=== PATIENT | male | born 1980 | race Caucasian/White ===

== ENCOUNTER 2019-05-26 04:26 | Inpatient (IN) | payer OTHER ==
[~2019-05-26] VITALS: Ht 160 cm; Wt 72.7 kg
[2019-05-26] MEDS ORDERED: HALOPERIDOL 5 MG INJ ONE (04:41)
[2019-05-26] MEDS ORDERED: DIPHENHYDRAMINE 50 MG INJ ONE (04:41)
[2019-05-26] MEDS ORDERED: LORAZEPAM 2 MG INJ ONE (04:41)
[2019-05-26] MEDS ORDERED: SODIUM CHLORIDE 0.9% 1L BAG IV* STA (04:54)
[2019-05-26] MEDS ORDERED: HALOPERIDOL 5 MG INJ IM ONE (05:00)
[2019-05-26] MEDS ORDERED: DIPHENHYDRAMINE 50 MG INJ IM ONE (05:00)
[2019-05-26] MEDS ORDERED: LORAZEPAM 2 MG INJ IM ONE (05:00)
[2019-05-26] MEDS ORDERED: CEFEPIME 2GM/50 ML (PMX) 50 ML IVPB STA (05:21)
[2019-05-26] MEDS ORDERED: VANCOMYCIN 1 GM (PMX) 250 ML IVPB ONE (05:30)
--- NOTE | 2019-05-26 06:18 | ERD ---
ER Documentation Chief Complaint Chief Complaint ALOC STARTING @245 HPI This is a 38-year-old male with a past medical history of hypertension that presents to the emergency department with changes in his mental status that occurred roughly 3 hours prior to arrival. His states that he drinks alcohol on a regular basis. She however states that the patient does not do illicit drugs. The patients awoke at 2:45 AM as she heard the patient acting bizarre. She stated the patient was talking to himself. He was not making sense according to the . The indicates the patient has not had any recent travel. He denied any recent headaches. He has not had a productive or nonproductive cough. The believes the patient's last consumption of alcohol was 1 week ago. The was unable to calm the patient down therefore she found 911. When EMS arrived they indicated the patient was very fidgety and aggressive. The patient had also been at [facility] yesterday evening treated for abdominal pain. The patient has a ventral hernia awaiting for outpatient surgical repair. He did receive a dose of morphine and Zofran in the emergency department at [place]. His states that his abdominal pain had improved and the patient had been subsequently discharged from the emergency room. ROS All systems reviewed and are negative except as per history of present illness. Medications Home Meds Reported Medications Citalopram Hydrobromide* (Celexa*) 10 Mg Tablet, 10 MG PO BID, #30 TAB 05/26/19 Pantoprazole* (Protonix*) 40 Mg Tablet.dr, 40 MG PO DAILY, TAB 05/26/19 Allergies Allergies: Coded Allergies: No Known Allergy (Unverified , 05/26/19) PMhx/Soc Hx Cardiac Disorders: Yes (htn) Hx Miscellaneous Medical Probl: Yes (fatty liver) Hx Alcohol Use: Yes Smoking Status: Unknown if ever smoked Physical Exam Vitals Vital Signs Date Temp Pulse Resp B/P (MAP) Pulse Ox O2 O2 Flow FiO2 Time Delivery Rate 05/26/19 87 20 127/91 99 Nasal 2.0 12:45 (103) Cannula 05/26/19 87 20 128/89 100 Nasal 3.0 11:38 (102) Cannula 05/26/19 99.2 105 22 134/92 100 Nasal 3.0 07:28 (106) Cannula 05/26/19 99.5 109 23 125/85 98 06:16 (98) 05/26/19 99.8 110 21 125/89 99 06:14 (101) 05/26/19 99.7 114 23 132/85 98 06:00 (101) 05/26/19 99.8 122 25 112/87 97 05:45 (95) 05/26/19 100.8 129 23 132/76 94 05:30 (94) 05/26/19 101.1 130 27 167/234 97 05:15 (212) 05/26/19 101.3 140 24 239/225 98 05:00 (230) 05/26/19 101.1 169 23 174/129 98 04:56 (144) 05/26/19 101.1 140 20 168/100 98 04:50 (122) Physical Exam Constitutional:Well-developed. Well-nourished. HEENT:Normocephalic. Atraumatic.Pupils were equal 4 mm round reactive to light. Very dry mucous membranes.No tonsillar exudates. Neck: No nuchal rigidity. No lymphadenopathy. No posterior cervical spine tenderness or step-offs. Respiratory: Not using accessory muscles of respiration.Lungs were clear to auscultation bilaterally. No rhonchi. No rales. No wheezing. Cardiovascular: Tachycardic with regular rhythm.No murmurs. No rubs were appreciated.S1, S2 normal. Distal pulses are palpable 2+ bilaterally. GI: Abdomen was soft. Nontender. Non Distended. No pulsatile abdominal masses or bruits. No rebound. No guarding. Bowel sounds were present and normal. Muscle skeletal: Full range of motion of both the upper and lower extremities bilaterally.Normal muscle tone.No assymetrical calf tenderness or swelling. Skin: Diaphoretic. No petechia, no purpura. No lesions on the palms or the soles of the feet. No maculopapular rash. NEURO: Patient was alert, awake to person but not to place or time. Gait not observed as patient was too combative. He was not following verbal commands PSYCH: Patient was speaking nonsensical words. Patient did not follow verbal command. Patient appeared guarded and anxious and appeared paranoid. Result Diagram: 05/26/1952305/26/19523 Results 24 hrs Laboratory Tests Test 05/26/19 05:21 05/26/19 05:24 05/26/19 06:09 05/26/19 07:52 POC Venous 7.8 mmol/L Lactate White Blood Count 8.9 10^3/ul Red Blood Count 4.75 10^6/ul Hemoglobin 13.9 g/dl Hematocrit 40.8 % Mean Corpuscular 85.9 fl Volume Mean Corpuscular 29.3 pg Hemoglobin Mean Corpuscular 34.1 g/dl Hemoglobin Concen t Red Cell 12.8 % Distribution Width Platelet Count 148 10^3/UL Mean Platelet 10.2 fl Volume Immature 0.300 % Granulocytes % Neutrophils % 79.9 % Lymphocytes % 10.7 % Monocytes % 8.2 % Eosinophils % 0.2 % Basophils % 0.7 % Nucleated Red 0.0 /100WBC Blood Cells % Immature 0.030 10^3/ul Granulocytes # Neutrophils # 7.1 10^3/ul Lymphocytes # 1.0 10^3/ul Monocytes # 0.7 10^3/ul Eosinophils # 0.0 10^3/ul Basophils # 0.1 10^3/ul Nucleated Red 0.0 10^3/ul Blood Cells # Prothrombin Time 12.4 Sec Prothrombin Time 1.0 Ratio INR International 0.91 Normalized Ratio Activated 22.2 Sec Partial Thrombopl ast Time Sodium Level 139 mmol/L Potassium Level 3.2 mmol/L Chloride Level 102 mmol/L Carbon Dioxide 17 mmol/L Level Anion Gap 20 Blood Urea 14 mg/dl Nitrogen Creatinine 1.18 mg/dl Est Glomerular > 60 mL/min Filtrat Rate mL/min Glucose Level 144 mg/dl Calcium Level 8.7 mg/dl Total Bilirubin 0.5 mg/dl Direct Bilirubin 0.00 mg/dl Indirect 0.5 mg/dl Bilirubin Aspartate Amino 109 IU/L Transf (AST/SGOT) Alanine 104 IU/L Aminotransferase (ALT/SGPT) Alkaline 133 IU/L Phosphatase Troponin I 0.028 ng/ml Total Protein 7.6 g/dl Albumin 4.2 g/dl Globulin 3.40 g/dl Albumin/Globulin 1.23 Ratio Salicylates Level < 1.0 mg/dl Acetaminophen < 10.0 ug/ml Level Ethyl Alcohol < 10.0 mg/dl Level Urine Color YELLOW Urine Clarity CLEAR Urine pH 6.0 Urine Specific 1.014 Mun[place] Urine Ketones 1+ mg/dL Urine Nitrite NEGATIVE mg/dL Urine Bilirubin NEGATIVE mg/dL Urine NEGATIVE mg/dL Urobilinogen Urine Leukocyte NEGATIVE Eliot/ul Esterase Urine Microscopic 0 /HPF RBC Urine Microscopic 1 /HPF WBC Urine Hemoglobin 1+ mg/dL Urine Glucose NEGATIVE mg/dL Urine Total 1+ mg/dl Protein Urine Opiates POSITIVE Screen Urine NEGATIVE Barbiturates Urine NEGATIVE Amphetamines Screen Urine NEGATIVE Benzodiazepines Screen Urine Cocaine NEGATIVE Screen Urine NEGATIVE Cannabinoids Lactic Acid Level 0.9 mmol/L Test 05/26/19 08:10 05/26/19 10:24 CSF Tubes Submitted CSF Volume ml CSF Appearance CSF Color CSF WBC /cmm CSF RBC /uL CSF Cell Count Tube # CSF Mononuclear % Cells % (Auto) CSF Polynuclear % WBCs (%) CSF Comment CSF Glucose 98 mg/dl CSF Total Protein mg/dl Lactic Acid Level 0.8 mmol/L Current Medications Medications Dose Sig/Anne Start Time Status Last (Trade) Ordered Route PRN Stop Time Admin Dose Reason Admin Haloperidol 5 mg ONCE ONCE 05/26/19 DC 05/26/19 (Haldol) IM 05:00 04:50 05/26/19 05:01 Lorazepam 2 mg ONCE ONCE 05/26/19 DC 05/26/19 (Ativan) IM 05:00 04:50 05/26/19 05:01 50 mg ONCE ONCE 05/26/19 DC 05/26/19 Diphenhydrami IM 05:00 04:50 ne HCl 05/26/19 05:01 (Benadryl) 50 mg STK-MED 05/26/19 DC Diphenhydrami ONCE .ROUTE 04:41 ne HCl 05/26/19 04:42 (Benadryl) Haloperidol 5 mg STK-MED 05/26/19 DC (Haldol) ONCE .ROUTE 04:41 05/26/19 04:42 Lorazepam 2 mg STK-MED 05/26/19 DC (Ativan) ONCE .ROUTE 04:41 05/26/19 04:42 Sodium 2,180 ml BOLUS OVER 2 05/26/19 DC 05/26/19 Chloride HOURS STAT 04:54 05:40 (NS) IV* 05/26/19 04:55 Cefepime HCl 50 ml @ ONCE STAT 05/26/19 DC 05/26/19 100 mls/hr IVPB 05:21 05:42 05/26/19 05:50 Vancomycin 250 ml @ ONCE ONCE 05/26/19 DC 05/26/19 HCl 125 mls/hr IVPB 05:30 06:13 05/26/19 07:29 Ketamine 22 mg ONCE ONCE 05/26/19 DC 05/26/19 HCl IV 06:30 07:57 (Ketalar) 05/26/19 06:31 10 mg ONCE ONCE 05/26/19 DC 05/26/19 Dexamethasone IV 06:30 06:39 (Decadron) 05/26/19 06:31 Sodium 1,000 ml @ Q1H STAT 05/26/19 DC 05/26/19 Chloride 1,000 mls/hr IV 08:14 08:25 05/26/19 08:53 Acyclovir 100 ml @ ONCE STAT 05/26/19 Cancel 500 mg/ 100 mls/hr IVPB 08:14 Dextrose 05/26/19 09:13 Lorazepam 2 mg ONCE STAT 05/26/19 DC 05/26/19 (Ativan) IV 09:24 11:20 05/26/19 09:25 Haloperidol 5 mg ONCE STAT 05/26/19 DC 05/26/19 (Haldol) IM 09:24 11:20 05/26/19 09:25 50 mg ONCE ONCE 05/26/19 DC 05/26/19 Diphenhydrami IV 09:30 11:20 ne HCl 05/26/19 09:31 (Benadryl) Ketamine 25 mg ONCE ONCE 05/26/19 DC HCl IV 12:30 (Ketalar) 05/26/19 12:31 Propofol 100 mg ONCE STAT 05/26/19 DC (Diprivan) IV 12:41 05/26/19 12:42 1,000 ml @ Q2H ONCE 05/26/19 Multivitamins 500 mls/hr IV 14:00 10 05/26/19 15:59 ml/Thiamine HCl 100 mg/Folic Acid 1 mg/Magnesium Sulfate 2 gm/ Sodium Chloride Procedures/MDM The patient presented to the emergency department with an acute and persistent change in their mental status. The differential diagnosis is diverse however reversible causes such as hypoglycemia, opiate overdose, thiamine deficiency were immediately considered. The patient was placed on a manager solution, continuous pulse oximetry and IV access was established. The patients airway was secure however hypoxic events such as anemia, shock, or severe pulmonary disease were all considered as etiologies in this patients presentation. Circulation assessed with good cap refill and did not require fluids or pressure support. Finger stick for rapid glucose determined to be normal. The patient had a urine drug screen that was negative for amphetamines or stimulants. This was positive for opiates but the patient had received a dose of intravenous morphine yesterday at [place] emergency room. Therefore I felt the patient required further evaluation into his altered mental status a lumbar puncture will be obtained to rule out for meningitis 12 Lead EKG tracing ordered and reviewed by myself showed: Sinus tachycardia 138 bpm and no arrhythmia. CO interval normal. QRS duration normal. No ST segment elevation No ST segment depression. No changes consistent with acute ischemia. Patient's infectious symptoms have not stabilized and the patient is at risk of rapid decompensation. The patient will be admitted for careful hydration, ant ibiotic therapy, and infectious source control. Severe Sepsis Assessment: Infectious Source: Unknown End organ damage indicated by: Lactate > 2.0 mmol/L Severe Sepsis Managment: Blood Cultures X 2 before broad spectrum antibiotics initiated within 3 hours of recognition. 30 ml/kg NS bolus Completed Initial Lactate: 7.0 Repeat Lactate pending Septic Shock Assessment (1 hour post 30 ml/kg fluid bolus): Hypotension (SBP < 90 or 40 mmHg drop, MAP < 65): No Lactic acid > 4.0 Yes Please note that I did not feel that the patient's lactic acid was elevated at 7.8. If this was a POC lactate. The patient had been very agitated and was difficult to obtain blood work when he initially arrived. The serum lactate taken from the initial blood draw was 0.9. Repeat lactic acid was 0.8. However the patient did receive a 30 cc/kg bolus of normal saline also was started on broad-spectrum antibiotics for suspected meningitis. He received 10 mg of Decadron intravenously and afterwards was given 1 g of vancomycin and 2 g of cefepime. Blood cultures and urine cultures have been obtained prior to antibiotics being given. CT scan of the patient's head showed no intracerebral hemorrhage mass-effect or midline shift. Chest radiograph showed no infiltrates or pneumothorax. Lumbar Puncture by me: Patient consented, time out performed, sterilely prepped/draped, anesthetized locally. Anesthesia: 1% lidocaine locally Location: One interspace below the iliac crest Technique: 22 gauge needle with stylet for entry and removal of needle Results: Bloody CSF fluid was obtained. The patient was very agitated. He required chemical sedation and restraints as he was attempting to remove life-s aving devices. This made the lumbar puncture very difficult to perform and this appeared to be a traumatic tap however acyclovir was also added to the patient's medications. A culture was sent but the blood clotted. Therefore a repeat lumbar puncture was performed by myself under conscious sedation. There was no hypoxic or apneic events. The patient was placed lying supine in the lateral decubitus position. Transparent clear fluid was obtained. CSF was sent for analyzation. Procedural Sedation: Pre-assessment performed. See preceding complete history and physical for details. Time out performed. See sedation documentation for details. Medication(s): 150 mg of propofol Complications: No hypoxic or apneic events Recovered without incident. Greater than 15 minutes of face to face time included in sedation and recovery. No post procedure complications, bleeding, numbness or weakness. I spoke with the [facility] physician and the patient was not stable for transfer. They gave authorization to admit to her panel physician the patient will go to the intensive care unit in serious condition. Case number was [id number]. The patient remained in restraints given that he continued to remove all his IVs which were replaced by nursing staff. He required further chemical sedation. Could also not rule out alcohol withdrawal delirium in this patient. He was given a banana bag Ativan. Ammonia level will be obtained to rule out for hepatic encephalopathy. Patient has mild transaminitis secondary to alcohol use. Critical Care: Time: 100 minutes Treatments/Evaluations: Close monitoring and treatment of unstable vital signs, cardiorespiratory, and neurologic status, while maintaining tight balance of fluid, respiratory, and cardiac interventions. Time does not include performing any of the above billable procedures. Departure Diagnosis: Primary Impression: Altered level of consciousness Additional Impressions: Meningitis Alcohol withdrawal delirium Condition: Serious STACI GERARD MD May 26, 2019 06:18
[2019-05-26] MEDS ORDERED: DEXAMETHASONE 10 MG/ML 1 ML INJ IV ONE (06:30)
[2019-05-26] MEDS ORDERED: KETAMINE (50 MG/ML) 10 ML VIAL IV ONE ×2 (06:30→12:30)
[2019-05-26] MEDS ORDERED: PANT40TA3 PO (06:53)
[2019-05-26] MEDS ORDERED: CITA10TA10 PO (06:54)
[2019-05-26] MEDS ORDERED: ACYCLOVIR 500 MG in DEXTROSE 5% 100 ML IVPB STA (08:14)
[2019-05-26] MEDS ORDERED: SOD CHLORIDE 0.9% 1,000 ML IV STA (08:14)
[2019-05-26] MEDS ORDERED: HALOPERIDOL 5 MG INJ IM STA (09:24)
[2019-05-26] MEDS ORDERED: LORAZEPAM 2 MG INJ IV STA (09:24)
[2019-05-26] MEDS ORDERED: DIPHENHYDRAMINE 50 MG INJ IV ONE (09:30)
[2019-05-26] MEDS ORDERED: PROPOFOL 200 MG INJ IV STA (12:41)
[2019-05-26] MEDS ORDERED: MULTIVITAMINS 10 ML, THIAMINE 100 MG, FOLIC ACID 1 MG, MAGNESIUM SULFATE 2 GM in SOD CH... IV ONE (14:00)
[2019-05-26] MEDS ORDERED: morphine 2 MG INJ IV PRN (17:00)
[2019-05-26] MEDS ORDERED: CEFTRIAXONE 2 GM/50 ML (PMX) 50 ML IVPB SCH (17:00)
[2019-05-26] MEDS ORDERED: NACL 0.9% 3 ML SYG IV SCH (17:00)
[2019-05-26] MEDS ORDERED: ONDANSETRON 4 MG INJ IV PRN (17:00)
[2019-05-26] MEDS ORDERED: VANCOMYCIN IV PER PHARMACY XX SCH (17:00)
--- NOTE | 2019-05-26 17:10 | HP ---
Date/Time of Note Date/Time of Note DATE: 05/26/19 TIME: 17:03 Assessment/Plan VTE Prophylaxis SCD applied (from Nsg): Yes Pharmacological prophylaxis: NA/contraindicated Pharm contraindication: other Lines/Catheters IV Catheter Type (from Nrsg): Saline Lock Assessment/Plan Hospital Course 1. Acute metabolic/toxic encephalopathy secondary to infectious process and/or alcohol withdrawal Patient's last drink was 4 days ago Patient with tachycardia and fever on arrival, LP done in the ED, follow-up on culture Treat for bacterial meningitis with Rocephin, vancomycin and Decadron as well as ampicillin due to alcohol abuse Check ammonia level Follow-up on cultures 2. Sepsis with fevers and tachycardia possibly secondary to bacterial meningitis Treatment as above IV fluids 3. History of alcohol abuse with fatty liver Patient's last drink was 4 days ago Banana bag Ativan as needed 4. Transaminitis likely secondary to fatty liver Follow-up on ultrasound of the liver and hepatitis panel 5. Hypokalemia Replete 6. History of hypertension Monitor 7. History of ventral hernia Plan for outpatient surgery Prophylaxis: SCDs Result Diagram: 05/26/1924 05/26/1924 Results 24hrs Laboratory Tests Test 05/26/19 05:21 05/26/19 05:24 05/26/19 06:09 05/26/19 07:52 POC Venous Lactate 7.8 *H White Blood Count 8.9 Red Blood Count 4.75 Hemoglobin 13.9 L Hematocrit 40.8 L Mean Corpuscular 85.9 Volume Mean Corpuscular 29.3 Hemoglobin Mean Corpuscular 34.1 Hemoglobin Concent Red Cell 12.8 Distribution Width Platelet Count 148 Mean Platelet Volume 10.2 Immature 0.300 Granulocytes % Neutrophils % 79.9 H Lymphocytes % 10.7 L Monocytes % 8.2 Eosinophils % 0.2 Basophils % 0.7 Nucleated Red Blood 0.0 Cells % Immature 0.030 Granulocytes # Neutrophils # 7.1 Lymphocytes # 1.0 Monocytes # 0.7 Eosinophils # 0.0 Basophils # 0.1 Nucleated Red Blood 0.0 Cells # Prothrombin Time 12.4 Prothrombin Time 1.0 Ratio INR International 0.91 Normalized Ratio Activated 22.2 L Partial Thromboplast Time Sodium Level 139 Potassium Level 3.2 L Chloride Level 102 Carbon Dioxide Level 17 L Anion Gap 20 H Blood Urea Nitrogen 14 Creatinine 1.18 Est Glomerular > 60 Filtrat Rate mL/min Glucose Level 144 Calcium Level 8.7 Total Bilirubin 0.5 Direct Bilirubin 0.00 Indirect Bilirubin 0.5 Aspartate Amino 109 H Transf (AST/SGOT) Alanine 104 H Aminotransferase (AL T/SGPT) Alkaline Phosphatase 133 H Troponin I 0.028 Total Protein 7.6 Albumin 4.2 Globulin 3.40 H Albumin/Globulin 1.23 Ratio Salicylates Level < 1.0 L Acetaminophen Level < 10.0 L Ethyl Alcohol Level < 10.0 H Urine Color YELLOW Urine Clarity CLEAR Urine pH 6.0 Urine Specific 1.014 [place] Urine Ketones 1+ H Urine Nitrite NEGATIVE Urine Bilirubin NEGATIVE Urine Urobilinogen NEGATIVE Urine Leukocyte NEGATIVE Esterase Urine Microscopic 0 RBC Urine Microscopic 1 WBC Urine Hemoglobin 1+ H Urine Glucose NEGATIVE Urine Total Protein 1+ H Urine Opiates Screen POSITIVE Urine Barbiturates NEGATIVE Urine Amphetamines NEGATIVE Screen Urine NEGATIVE Benzodiazepines Screen Urine Cocaine Screen NEGATIVE Urine Cannabinoids NEGATIVE Lactic Acid Level 0.9 Test 05/26/19 08:10 05/26/19 10:24 05/26/19 13:50 05/26/19 14:20 CSF Tubes Submitted 4 CSF Volume 5.0 CSF Appearance CLEAR CSF Color COLORLESS CSF WBC 1 CSF RBC 0 CSF Cell Count Tube TUBE#1 # CSF Mononuclear 100.0 Cells % (Auto) CSF Polynuclear WBCs 0.0 (%) CSF Comment CSF Glucose 98 H 63 CSF Total Protein 40 Lactic Acid Level 0.8 Ammonia 12 HPI/ROS Admit Date/Time Admit Date/Time May 26, 2019 Hx of Present Illness Patient is a 38-year-old male with history of hypertension, alcohol abuse, reported fatty liver who presents with acute confusion that started 3 hours prior to arrival. Per the patient's patient does drink alcohol on a regular basis but last drink was 4 days ago. Patient does not report the use illicit drugs. Patient's woke up at 3 AM and noticed that the patient was acting different than his baseline, patient was making sense and talking to himself. Patient has no sick contacts, headaches or recent travel history. Patient became agitated and called 911, paramedics reported that the patient was agitated and aggressive. Patient was recently at [facility] and treated for abdominal pain. Patient does have a ventral hernia and is waiting for outpatient surgical repair. In the ER patient's temperature was elevated and LP was done due to concern for meningitis. Patient's mentation is currently improved but is still confused and not back to baseline according to . Toxicology in the ER was positive only for opiates. ROS Confused PMH/Family/Social Past Medical History As per HPI Medications Current Medications IV Flush (NS 3 ml) 3 ml PER PROTOCOL IV ; Start 05/26/19 at 17:00 Ondansetron HCl (Zofran Inj) 4 mg Q6H PRN IV NAUSEA/VOMITING; Start 05/26/19 at 17:00 Morphine Sulfate (morphine) 2 mg Q4H PRN IV .SEVERE PAIN 7-10; Start 05/26/19 at 17:00 Ceftriaxone Sodium 50 ml @ 100 mls/hr Q24H IVPB ; Start 05/26/19 at 17:00; Status UNV Vancomycin HCl (Vanco Iv Per Pharmacy) 1 ea PER PROTOCOL XX ; Start 05/26/19 at 17:00; Status UNV Dexamethasone (Decadron) 11 mg Q6 IV ; Start 05/26/19 at 18:00 Ampicillin 100 ml @ 100 mls/hr Q4 IVPB ; Start 05/26/19 at 17:00 Potassium Chloride 30 meq/ Sodium Chloride 1,015 ml @ 100 mls/hr Q10H9M IV ; Start 05/26/19 at 17:00 Coded Allergies: No Known Allergy (Unverified , 05/26/19) Past Surgical History Past Surgical Hx: no surgical history Family History Significant Family History: no pertinent family hx Social History Alcohol Use: heavy Smoking Status: Unknown if ever smoked Drug Use: none Exam/Review of Systems Vital Signs Vitals Vital Signs Date Temp Pulse Resp B/P (MAP) Pulse Ox O2 O2 Flow FiO2 Time Delivery Rate 05/26/19 87 18 128/100 99 Nasal 2.0 15:45 (109) Cannula 05/26/19 99.2 07:28 Intake and Output 05/25/19 05/25/19 05/26/19 1515:00 23:00 07:00 IntakeIntake Total 50 ml BalanceBalance 50 ml Exam Constitutional: alert Psych: confusion Respiratory: clear to auscultation Cardiovascular: regular rate and rhythm Gastrointestinal: soft; No distended Musculoskeletal: nl extremities to inspection ALEX RUTH May 26, 2019 17:10
[2019-05-26] MEDS ORDERED: LORAZEPAM 2 MG INJ IV PRN (17:30)
[2019-05-26] MEDS: AMPICILLIN 2 GM/NS (PMX) 100 ML IVPB SCH ×2 (17:50→21:06)
[2019-05-26] MEDS: POTASSIUM CHLORIDE 30 MEQ in SOD CHLORIDE 0.9% 1,000 ML IV SCH (17:51)
[2019-05-26] MEDS ORDERED: VANCOMYCIN 500 MG (PMX) 100 ML IVPB ONE (18:00)
[2019-05-26] MEDS ORDERED: VANCOMYCIN 1.5 GM/NS 250 ML 250 ML IVPB ONE (18:00)
[2019-05-26] MEDS: DEXAMETHASONE 4 MG/ML 5 ML INJ IV SCH (18:50)
[2019-05-26 19:30] VITALS: Ht 160 cm; Wt 72.7 kg
[2019-05-26 20:00] VITALS: BP 131/90; PULSE 78; PULSE 80; RESP 17
[2019-05-26 21:00] VITALS: BP 137/93; PULSE 85; RESP 18
[2019-05-26 22:00] VITALS: BP 127/93; PULSE 82; RESP 18
[2019-05-26 23:00] VITALS: BP 127/88; PULSE 87; RESP 22
[2019-05-27] VITALS (23 sets, daily range): BP systolic 109–169; BP diastolic 88–114; PULSE 70–109; RESP 11–26
[2019-05-27] MEDS: DEXAMETHASONE 4 MG/ML 5 ML INJ IV SCH ×3 (01:35→12:00)
[2019-05-27] MEDS: AMPICILLIN 2 GM/NS (PMX) 100 ML IVPB SCH ×4 (01:41→13:00)
[2019-05-27] MEDS: POTASSIUM CHLORIDE 30 MEQ in SOD CHLORIDE 0.9% 1,000 ML IV SCH ×2 (03:09→13:17)
[2019-05-27] MEDS: MULTIVITAMINS 10 ML, THIAMINE 100 MG, FOLIC ACID 1 MG in SOD CHLORIDE 0.9% 1,000 ML IVPB SCH ×2 (04:55→04:57)
[2019-05-27] MEDS ORDERED: VANCOMYCIN 1 GM 250 ML IVPB SCH (06:00)
[2019-05-27] MEDS ORDERED: CEFTRIAXONE 2 GM/50 ML (PMX) 50 ML IVPB SCH (07:00)
--- NOTE | 2019-05-27 10:25 | PDOCDIS ---
Discharge Instructions CONDITION [id number] Patient Condition: [id number] Good HOME CARE INSTRUCTIONS: [id number] Diet Instructions: [id number] Regular ACTIVITY: [id number] Activity Restrictions: [id number] No Restrictions FOLLOW UP/APPOINTMENTS Follow-up Plan FOLLOW UP WITH YOUR PCP IN 1-2 WEEKS ALEX RUTH May 27, 2019 10:25
--- NOTE | 2019-05-27 12:06 | CONSI ---
Assessment/Plan Assessment/Plan Assessment/Plan (Recall) 38 M who presents for evaluation of confusion and agitation in the context of fevers. The clinical picture was initially thought concerning for encephalitis; CSF evaluation is reassuringly negative. An acute toxic-metabolic encephalopathy is possible.. ETOH withdrawal is considered less likely.. Head CT is unrevealing. P: OK to defer further neurologic investigation for now Continued medical management and supportive care per primary Neurologically cleared for transfer Consultation Date/Type/Reason Admit Date/Time May 26, 2019 Type of Consult Neurology Reason for Consultation ams, fevers Requesting Provider: ALEX RUTH Date/Time of Note DATE: 05/27/19 TIME: 11:58 Hx of Present Illness 38 M who presents for evaluation of confusion. He states that he developed a GI illness, which led him to [facility] twice in the past week. He notes that he was eventually prescribed morphine, which made him confused and psychotic.. He denies headache, weakness, numbness, or other neurologic Sx.. It is elsewhere noted: Patient is a 38-year-old male with history of hypertension, alcohol abuse, reported fatty liver who presents with acute confusion that started 3 hours prior to arrival. Per the patient's patient does drink alcohol on a regular basis but last drink was 4 days ago. Patient does not report the use illicit drugs. Patient's woke up at 3 AM and noticed that the patient was acting different than his baseline, patient was making sense and talking to himself. Patient has no sick contacts, headaches or recent travel history. Patient became agitated and called 911, paramedics reported that the patient was agitated and aggressive. Patient was recently at [facility] and treated for abdominal pain. Patient does have a ventral hernia and is waiting for outpatient surgical repair. In the ER patient's temperature was elevated and LP was done due to concern for meningitis. Patient's mentation is currently improved but is still confused and not back to baseline according to . Toxicology in the ER was positive only for opiates. per HPI Objective Exam Vitals Vital Signs Date Temp Pulse Resp B/P (MAP) Pulse Ox O2 O2 Flow FiO2 Time Delivery Rate 05/27/19 97 26 138/98 94 11:15 (111) 05/27/19 Room Air 11:00 05/27/19 96.1 08:00 7/16/19 2.0 18:28 Intake and Output 05/26/19 05/26/19 05/27/19 1515:00 23:00 07:00 IntakeIntake Total 400 ml 1075 ml BalanceBalance 400 ml 1075 ml Exam PE: Gen Appearance: No Apparent Distress HEENT: Normocephalic Cardiovascular: Regular rate Lungs: Clear bilaterally Abdomen: Soft Extremities: Dry NE: The patient was alert and oriented. Language was normal. Fund of knowledge was normal. Pupils were equal and reactive to light. There was no afferent pupillary defect. Visual smyth were normal. Funduscopic examination was limited. Extra-ocular movements were full. Ptosis was absent. There was no nystagmus. Facial sensation was normal. Face was symmetric with normal strength. Hearing was intact. Palate movements were normal. Neck strength was normal. There was normal tongue bulk and speed of movement. Tone was normal. Muscle bulk was normal. I did not see fasciculations. Arms and legs were strong. Vibration sensation was normal. Temperature and pinprick sensation was normal. Rapid alternating movements were normal. There was no dysmetria. There was no intention tremor. Gait was deferred due to bedrest. Arm and leg reflexes were 2+ and symmetric. Moore's sign was absent. Plantar responses were flexor. Results Result Diagram: 05/27/19 0439 05/27/19 0440 Results 24hrs Laboratory Tests Test 05/26/19 13:50 05/26/19 14:20 05/26/19 19:22 05/27/19 04:39 CSF Tubes Submitted 4 CSF Volume 5.0 CSF Appearance CLEAR CSF Color COLORLESS CSF WBC 1 CSF RBC 0 CSF Cell Count Tube TUBE#1 # CSF Mononuclear 100.0 Cells % (Auto) CSF Polynuclear WBCs 0.0 (%) CSF Glucose 63 CSF Total Protein 40 Ammonia 12 17 White Blood Count 10.6 Red Blood Count 4.62 L Hemoglobin 13.6 L Hematocrit 40.1 L Mean Corpuscular 86.8 Volume Mean Corpuscular 29.4 Hemoglobin Mean Corpuscular 33.9 Hemoglobin Concent Red Cell 13.6 Distribution Width Platelet Count 163 Mean Platelet Volume 9.8 Immature 0.500 H Granulocytes % Neutrophils % 89.9 H Lymphocytes % 7.3 L Monocytes % 2.2 Eosinophils % 0.0 Basophils % 0.1 Nucleated Red Blood 0.0 Cells % Immature 0.050 H Granulocytes # Neutrophils # 9.5 H Lymphocytes # 0.8 Monocytes # 0.2 L Eosinophils # 0.0 Basophils # 0.0 Nucleated Red Blood 0.0 Cells # Hemoglobin A1c 5.8 Test 05/27/19 04:40 Sodium Level 138 Potassium Level 3.9 Chloride Level 105 Carbon Dioxide Level 25 Anion Gap 8 # Blood Urea Nitrogen 7 Creatinine 0.59 L Est Glomerular > 60 Filtrat Rate mL/min Glucose Level 155 Calcium Level 8.5 Phosphorus Level 2.7 Magnesium Level 2.2 Total Bilirubin 0.7 Direct Bilirubin 0.00 Indirect Bilirubin 0.7 Aspartate Amino 134 H Transf (AST/SGOT) Alanine 114 H Aminotransferase (AL T/SGPT) Alkaline Phosphatase 100 Total Protein 6.9 Albumin 3.7 Globulin 3.20 Albumin/Globulin 1.15 Ratio Hepatitis B Surface NEGATIVE Antigen Hepatitis B Core NEGATIVE Total Antibody Hepatitis C Antibody NEGATIVE Past Medical History reviewed Home Meds Reported Medications Citalopram Hydrobromide* (Celexa*) 10 Mg Tablet, 10 MG PO BID, #30 TAB 05/26/19 Pantoprazole* (Protonix*) 40 Mg Tablet.dr, 40 MG PO DAILY, TAB 05/26/19 Medications Current Medications IV Flush (NS 3 ml) 3 ml PER PROTOCOL IV ; Start 05/26/19 at 17:00 Ondansetron HCl (Zofran Inj) 4 mg Q6H PRN IV NAUSEA/VOMITING; Start 05/26/19 at 17:00 Morphine Sulfate (morphine) 2 mg Q4H PRN IV .SEVERE PAIN 7-10; Start 05/26/19 at 17:00 Vancomycin HCl (Vanco Iv Per Pharmacy) 1 ea PER PROTOCOL XX ; Start 05/26/19 at 17:00 Dexamethasone (Decadron) 11 mg Q6 IV Last administered on 05/27/19at 05:47; Admin Dose 11 MG; Start 05/26/19 at 18:00 Ampicillin 100 ml @ 100 mls/hr Q4 IVPB Last administered on 05/27/19at 09:59; Admin Dose 100 MLS/HR; Start 05/26/19 at 17:00 Potassium Chloride 30 meq/ Sodium Chloride 1,015 ml @ 100 mls/hr Q10H9M IV Last administered on 05/26/19at 17:51; Admin Dose 100 MLS/HR; Start 05/26/19 at 17:00 Multivitamins 10 ml/Thiamine HCl 100 mg/Folic Acid 1 mg/Sodium Chloride 1,011.2 ml @ 125 mls/ hr DAILY@09 IVPB Last administered on 05/27/19at 04:55; Admin Dose 125 MLS/HR; Start 05/27/19 at 09:00 Lorazepam (Ativan) 1 mg Q4 PRN IV AGITATION/ANXIETY; Start 05/26/19 at 17:30 Vancomycin HCl 250 ml @ 125 mls/hr Q12H IVPB Last administered on 05/27/19at 06:00; Admin Dose 125 MLS/HR; Start 05/27/19 at 06:00 Ceftriaxone Sodium 50 ml @ 100 mls/hr Q12H IVPB ; Start 05/27/19 at 07:00 Miscellaneous Information (*Rx Drug Level Order Reminder*) RADHA TR 1700 ONCE XX ; Start 05/27/19 at 17:00; Stop 05/27/19 at 17:01 Allergies: Coded Allergies: No Known Allergy (Unverified , 05/26/19) Past Surgical History Past Surgical Hx: no surgical history Social History Alcohol Use: other (regular) Smoking Status: Unknown if ever smoked Drug Use: none LOUIS ANDRES May 27, 2019 12:06
--- NOTE | 2019-05-27 14:47 | DS ---
Date/Time of Note Date/Time of Note DATE: 05/27/19 TIME: 14:39 Discharge Summary Admission/Discharge Info Admit Date/Time May 26, 2019 at 13:47 Discharge Date/Time May 27, 2019 Discharge Diagnosis 1. Acute metabolic/toxic encephalopathy secondary to recent morphine exposure as well as alcohol withdrawal Patient did have suspicion of meningitis on arrival with fevers and confusion but LP and labs did not suggest infection Patient had resolution of confusion Status post antibiotics Neurology consultation appreciated Ammonia level was within normal limits Patient with rapid improvement and sooner than anticipated 2. Sepsis with fevers and tachycardia possibly secondary to bacterial meningitis-resolved No evidence of meningitis or sepsis Status post IV antibiotics 3. History of alcohol abuse with fatty liver Patient's last drink was 4 days ago Banana bag Ativan as needed Liver ultrasound does show hepatic steatosis versus cirrhosis 4. Transaminitis likely secondary to fatty liver and alcohol abuse Liver ultrasound as above, hepatitis panel was negative 5. Hypokalemia Repleted 6. History of hypertension Stable 7. History of ventral hernia Plan for outpatient surgery Patient Condition: Good Hospital Course Patient is a 38-year-old male with history of hypertension, alcohol abuse, reported fatty liver who presents with acute confusion that started 3 hours prior to arrival. Per the patient's patient does drink alcohol on a regular basis but last drink was 4 days ago. Patient does not report the use illicit drugs. Patient did present with fevers as well as confusion and hence LP was done which did not suggest infection. Patient's fevers did resolve and had no further evidence of sepsis, patient was placed on antibiotic regimen for possible meningitis and was seen by neurology. Patient mentation normalized rapidly day after admission, etiology of encephalopathy may have been secondary to morphine which he received earlier in the day at [facility] and was sev eral hours prior to onset of his confusion. In addition patient is a daily drinker and had not had a drink for several days which may have contributed to an element of withdrawal. Of note toxicology was negative except for opiates. Patient was felt to be stable for DC with no evidence of meningitis, on the day of discharge patient's vitals, labs and physical exam are stable. Home Meds Reported Medications Citalopram Hydrobromide* (Celexa*) 10 Mg Tablet, 10 MG PO BID, #30 TAB 05/26/19 Pantoprazole* (Protonix*) 40 Mg Tablet.dr, 40 MG PO DAILY, TAB 05/26/19 Follow-up Plan FOLLOW UP WITH YOUR PCP IN 1-2 WEEKS Primary Care Provider Care Physician No Primary Time spent on discharge: > 30 minutes ALEX RUTH May 27, 2019 14:47
== END 2019-05-27 12:45 | disposition home or self-care (01) | DRG 92 ==
LOC: E/R 04:26 → ICU 13:47
PROVIDERS: ADMIT Internal Medicine; ATTEND Internal Medicine
PROC: 009U3ZX Drainage of Spinal Canal, Percutaneous Approach, Diagnostic (ICD-10-PCS; principal; 2019-05-26)
DX: G92 Toxic encephalopathy (principal); F10.239 Alcohol dependence with withdrawal, unspecified; I10 Essential (primary) hypertension; K70.0 Alcoholic fatty liver; E87.6 Hypokalemia; K43.9 Ventral hernia without obstruction or gangrene; T40.2X5A Adverse effect of other opioids, initial encounter; Y92.239 Unspecified place in hospital as the place of occurrence of the external cause
CPT/HCPCS: 36415; 70450; 71045; 76705; 80053; 80307; 81001; 82140; 82945; 83036; 83605; 83735; 84100; 84157; 84484; 85025; 85610; 85730; 86704; 86709; 86803; 87070; 87086; 87102; 87210; 87252; 87340; 87529; 89051; 93005; 94770; 96365; 96372; 96375; J0133; J0290; J0692; J0696; J1100; J1200; J1630; J2060; J3370; J3411; J3475; J3480; J7030